=== PATIENT | female | born 1995 | race Caucasian/White ===

== ENCOUNTER 2019-10-26 13:37 | Outpatient (CLI) | payer BC, SELFPAY ==
--- NOTE | ~2019-10-26 | US_ITS ---
US breast RT limited DATE: 10/26/2019 14:18 INDICATION: Right breast lump TECHNIQUE: Real-time targeted imaging and color flow imaging of the right breast COMPARISON: None FINDINGS: There is a circumscribed lobular 10.1 x 15.6 x 16.1 mm solid mass at 3:00 2 cm from the nip ple, with internal vascularity. There is no suspicious shadowing. This is likely a benign fibroadenom a. IMPRESSION: BI-RADS Category 3: Probably benign. Probable benign fibroadenoma Recommendation: 6 month ultrasound follow-up Reviewed, dictated and finalized at [facility]. Reviewed, dictated and finalized at [facility].
== END 2019-10-26 13:38 | disposition home or self-care (01) ==
LOC: ANHIMG 13:42
PROVIDERS: PCP Internal Medicine; Visit Provider Nurse Practitioner Obstetrics & Gynecology
DX: N63.10 Unspecified lump in the right breast, unspecified quadrant (principal); R92.8 Other abnormal and inconclusive findings on diagnostic imaging of breast
CPT/HCPCS: 76642